=== PATIENT | male | born 1945 | race Caucasian/White ===

== ENCOUNTER 2017-08-05 07:23 | Day surgery (SDC) | payer MEDICARE ==
[2017-08-05] VITALS (9 sets, daily range): BP systolic 103–129; BP diastolic 53–81
[~2017-08-05] VITALS: Ht 182.9 cm; Wt 72.6 kg
[~2017-08-05 07:23] MED LIST: LIPITOR80 M1 PO; TAMSULOSIN HCL0.4 MG PO
--- NOTE | 2017-08-05 12:05 | NUR ---
PT TRANSFERRED TO ROOM 271 ACCOMPANIED BY OR STAFF AND SELF RE-POSITIONED INTO HOSPITAL BED;VS OBTAINED AND ASSESSMENT COMPLETED;PT ORIENTED TO ROOM AND CALL LIGHT SYSTEM AND VERBALIZES UNDERSTANDING;PT DENIES ANY PAIN OR DISCOMFORTS, EDUCATED ON PAIN LEVEL AND REPORTING;PT ALERT AND ORIENTED X4;EDUCATED PT ON CBI AND PT VERBALIZES UNDERSTANDING;RESPIRATIONS EVEN AND UNLABORED ON RA,CLEAR LUNG SOUNDS;ABDOMEN SOFT ON PALPATION AND HYPOACTIVE IN ALL 4 QUADRANTS;STRONG PEDAL PULSES;SCD'S PLACED ON PT;#20G TO LEFT HAND INFUSING LR @ 100ML/HR,SITE APPEARS HEALTHY;CATHETER TRACTION DEVICE IN PLACE AND TRACTION SET TO 10 PER OR;CDI RUNNING WITH EASE AND DRAINING RED/CLEAR FLUIDS,PT TOLERATING WELL;ICE CHIPS PROVIDED PER REQUEST;I.S. PLACED AT BEDSIDE AND PT INSTRUCTED ON USE X10 PER HOUR WHILE AWAKE,GOAL SET TO 1500;ALL SAFETY PRECAUTIONS REINFORCED WITH BED IN THE LOWEST POSITION;ENCOURAGED PT TO CALL FOR ASSISTANCE IF NEEDED;CALL LIGHT IN REACH;WILL CONTINUE TO MONITOR
--- NOTE | 2017-08-05 14:35 | NUR ---
PT RESTING IN SEMI FOWLERS POSITION WITH VISITOR AT BEDSIDE;DENIES ANY CURRENT PAIN JUST AN "URGE TO URINATE";CDI CURRENTLY RUNNING ON BAG #8 DRAINING BRIDGES RED/CLEAR URINE;PT TOLERATING ICE CHIPS WELL;IV SITE PATENT;WILL CONTINUE TO MONITOR
--- NOTE | 2017-08-05 16:00 | NUR ---
PT RESTING IN SEMI FOWLERS POSITION;PT CURRENTLY ON BAG #12 CBI;BRIDGES RED/CLEAR DRAINAGE BEING OBTAINED;CATHETER TRACTION DEVICE IN PLACE AND PT TOLERATING WELL;IV FLUIDS RUNNING ORDERED WITH EASE;PT DENIES ANY CURRENT PAIN OR DISCOMFORTS;RESPIRATIONS EVEN AND UNLABORED ON RA;PO FLUIDS ENCOURAGED;ENCOUARGED PT TO CALL FOR ASSISTANCE IF NEEDED;CALL LIGHT IN REACH;WILL CONTINUE TO MONITOR
--- NOTE | 2017-08-05 19:30 | NUR ---
PATIENT RESTING IN BED AWAKE ALERT AND ORIENTEDX3 WITH CBI IN PLACE. PATIENT WITH #24 CROATIAN 3-WAY CROWDER IN PLACE WITH 50CC BALLOON DRAINING PINK URINE. TRACTION DEVICE IN PLACE AND ON #8 SETTING. PATIENT WITH SMALL AMT OF BLOODY DRAINAGE NOTED AT PENIAL-CATH JUNCTION. SPOKE WITH DR. BEATTY AND RECIEVED ORDERS TO REMOVE TRACTION DEVICE AND IT WAS REMOVED WITHOUT ANY DIFFICULTY. URINE THEN BECAME BRIDGES AND CDI WAS INCREASED. PATIENT DENIES PAIN BUT DOES STATE THAT HE DOES HAVE SOME PRESSURE TO THE SUPRAPUBIC AREA. IV SITE TO LEFT HAND INTACT WITH IVF PATENT AND INFUSING AT 100CC/HR. SITE APPEARS HEALTHY AT THIS TIME. PATIENT TAKING PO FLUIDS AND TOLERATED WELL AT THIS TIME. SAFETY PRECAUTIONS REINFORCED. CALL LIGHT IN REACH. WILL CONT TO MONITOR.
--- NOTE | 2017-08-05 20:36 | NUR ---
PT.MEDICATED ORDERS PROVIDE AND W/BENTYL FOR WHAT FEELS LIKE POSSIBLE SPASMS TO THE PT. PROVIDED PENILE CARE AT CATH JUNCTION SITE/FOR BLEEDING. PT.ASSESSEMENT COMPLETED AT THIS TIME, LUNG SOUNDS ARE CLEAR, ABD DIST/FIRM AND TENDER IN L&R LOWER QUADRANTS, PT.REPORTS MILD SORE THROAT, SKIN IS INTACT PT.LOCX4. PT.DENIES ANY OTHER NEEDS AT THIS TIMME. POC WAS DISCUSSED W/PT AND PT.ENCOURAGED TO CALL IF ANY NEEDS ARISE.
--- NOTE | 2017-08-05 22:07 | NUR ---
PT.IS IN LOW FOWLERS POSITION W/LIGHTS OUT. CBI RUNNING DRAINING BRIDGES RED/NO CLOTS. DENIES ANY OTHER NEEDS AT THIS TIME.
--- NOTE | 2017-08-05 22:28 | NUR ---
PT.MEDICATED FOR PAIN 6/10 DULL ACHE IN PROSTATE AND TIP OF PENIS. PT.IS USING IS, CBI IS RUNNING OPEN W/BRIDGES RED OUTPUT W/GOOD URINE OUTPUT. PT.DENIES ANY OTHER NEEDS AT THIS TIME. CALL LIGHT IS W/IN REACH.
[2017-08-06 00:12] VITALS: BP 133/86
--- NOTE | 2017-08-06 00:36 | NUR ---
CBI CLOTTING, IRRIGATION NS PULLED BUT WE WERE ABLE TO DISLODGE CLOTS IN TUBING W/OUT ACTUAL IRRIGATION. CBI FLOWING/DRAINING LIGHT RED AT THIS TIME. CATH STRAP IS IN PLACE. PENILE DRESSING BLOOD SOAKED/DRESSING CHANGED AND REINFORCED. PT.TOLERATED PROCEDURES WELL. DENIES ANY OTHER NEEDS AT THIS TIME. SCD'S ARE ON AND PT.INSTRUCTED TO CALL IF BLEEDING CONTINUES OR IF ANY OTHER ISSUES ARISE. DENIES PAIN AT THIS TIME, JUST STATES HE HAS "PRESSURE."
--- NOTE | 2017-08-06 03:19 | NUR ---
PT.APPEARS TO BE SLEEPING AT THIS TIME. CBI DRAINING CLEAR LIGHT RED W/GOOD URINE OUTPUT, HAS BEEN SLIGHTLY TITRATED DOWN W/CLARITY IMPROVEMENT.
--- NOTE | 2017-08-06 04:09 | NUR ---
LAB IN TO SEE PT. CBI TITRATED DOWN, REMAINING DARK PINK/CLEAR AT THIS TIME. BAG 43 OF NS IRRIGATION IS RUNNING AT THIS TIME. GOOD URINE OUTPUT. PT.REPORTS THAT DISCOMFORT IS MUCH BETTER, HE ONLY "FEELS SLIGHT PRESSURE." CALL LIGHT IS W/IN REACH AND PT.INSTRUCTED TO CALL IF ANY NEEDS ARISE.
[2017-08-06 04:21] VITALS: BP 114/72
[2017-08-06 05:04] LABS: IMMATURE GRANULOCYTES 0.3 % (0.0-1.0); MEAN CELL VOLUME 92.7 fL CALC (80.0-100.0); MEAN CORPUSCULAR HGB 31.7 pG CALC (26.0-32.0); MEAN CORPUSCULAR HGB CONC 34.2 g/L CALC (32.0-36.0); NEUT# 5.8 thou/uL (1.82-7.42); RED BLOOD COUNT 4.13 mill/uL (4.70-6.10); RED CELL DISTRI WIDTH 12.7 % (11.5-15.5)
[2017-08-06 05:05] LABS: HEMATOCRIT 38.3 % (39.0-50.0); HEMOGLOBIN 13.1 g/dl (14.0-18.0)
[2017-08-06 05:14] LABS: ANION GAP 14 (6-22 (CALC)); BUN 15 mg/dL (8-23); BUN/CREATININE RATIO 18 (12-20 (CALC)); CARBON DIOXIDE 29 mmol/l (22-30); CHLORIDE 99 mmol/l (95-108); CREATININE 0.8 mg/dL (0.7-1.3); GFR > 60 ML/MIN (>=60 (CALC)); GFR FOR AFR.AMER. > 60 ML/MIN (>=60 (CALC)); MAGNESIUM 1.8 mg/dL (1.6-2.3); POTASSIUM 4.2 mmol/l (3.5-5.1); SODIUM 138 mmol/l (137-146)
--- NOTE | 2017-08-06 05:22 | NUR ---
PT.PENILE DRESSING IS CDI, CBI IS TITRATED SLOW W/LIGHT RED/DARK PINK DRAINAGE W/GOOD URINE OUTPUT. PT.DENIES ANY PAIN ONLY MILD PRESSURE AT THIS TIME. CALL LIGHT IS W/IN REACH AND PT.HAS BEEN ENCOURAGED TO CALL IF ANY NEEDS ARISE.
--- NOTE | 2017-08-06 07:00 | NUR ---
RECEIVED BEDSIDE REPORT FROM KIRBY MONTOYA. RESTTING IN SUPINE POSITION, RESPS EVEN AND UNLABORED ON ROOM AIR. DR BEATTY AT BEDSIDE, NEW ORDERS RECEIVED. CBI CLAMPED AT THIS TIME, CATH BAG WITH SM AMT CRANBERRY COLORED DRAINAGE. PT DENIES PAIN OR DISCOMFORT. PLAN OF CARE DISCUSSED. SAFETY PRECAUTIONS REINFORCED. BED IN LOWEST POSITION WITH WHEELS LOCKED. CALL LIGHT WITHIN REACH. ENCOURAGED PT TO CALL FOR ANY NEEDS.
[2017-08-06 08:19] VITALS: BP 120/86
--- NOTE | 2017-08-06 10:17 | NUR ---
AMBULATING IN HALLWAY WITH STEADY GAIT ACCOMPANIED BY RENAE SANDERS.
--- NOTE | 2017-08-06 11:49 | NUR ---
Discharged to: HOME Discharged via: Wheelchair Accompanied by: significant other D/C Condition: stable Diet: as tolerated Diet modification: Activity: No strenuous activity Home Health: [facility] Follow up appointment: 2 [address] [facility] Special instructions: HOME HEALTH TO REMOVE [place] 08/08/17 DR BEATTY [phone] FOR ANY QUESTIONS/PROBLEMS Medications: SEE MEDICATION RECONCILIATION FORM Prescriptions Given: KEFLEX, AZO, VESICARE, TRAMADOL Please notify your physician if you received either one of these vaccinations: Influenza Vaccine - Date: Pneumococcal Vaccine - Date: Patient Education Materials Provided: Yes - Food and Drug Interaction Guide Yes - Anticoagulation Education Booklet Contains the following information: 1. Compliance issues 2. Dietary advice 3. Follow up monitoring 4. Potential for adverse drug reactions and interactions Yes - Smoking Cessation Booklet IF SYMPTOMS WORSEN, OR IF YOU HAVE ADDITIONAL QUESTIONS, PLEASE CONTACT YOUR PERSONAL PHYSICIAN OR SEEK EMERGENCY CARE. CALL YOUR PHYSICIAN IF YOU DO NOT GET RELIEF FROM THE PAIN MEDICATIONS PRESCRIBED, OR IF THE INTENSITY OF PAIN INCREASES, OR IF PAIN IS INTERFERING WITH ACTIVITY OR REST. IF YOU SMOKE, YOU NEED TO QUIT. IT IS GOOD FOR YOU AND EVERYONE AROUND YOU! Your physician and [facility] care about you and your health. The facts are clear. Smoking causes 1 out of 5 deaths in the [place] each year. It is the major preventable cause of emphysema, lung cancer, chronic bronchitis, heart disease and stroke. Quitting is one of the best things you can ever do for yourself and those you love. What better time to quit than now! You've already been cigarette free during your stay. Studies have shown that the first 48 hours of quitting are the toughest. Just a few of the benefits your body begins to experience are blood pressure returns to normal, the carbon monoxide level in your blood drops to normal, your chance of heart attack decreases, and your ability to smell and taste is enhanced. Here are some resources that you may find helpful: [employer] www.lungusa.org www.cancer.org [employer] [place] Department of Health (Tobacco Prevention and Control Program) www.americanheart.org www.jocelin.[facility].fl.us Finally don't forget that your doctor may be able to help you. Whichever method you choose will be good for you. IF YOU HAVE A DIAGNOSIS OF CONGESTIVE HEART FAILURE, THERE ARE SEVERAL ADDITIONAL INSTRUCTIONS FOR YOU TO FOLLOW UPON DISCHARGE FROM THE HOSPITAL. Weigh yourself every day and if weight gain is greater than 2 pounds in a day, call your physican. If you experience worsening symptoms such as: Problems with breathing or shortness of breath Ankle/foot/leg swelling Unexplained weight gain greater than 2 pounds Call your physician or come to the emergency room. IF YOU HAVE A DIAGNOSIS OF STROKE, THERE ARE SEVERAL ADDITIONAL INSTRUCTIONS FOR YOU TO FOLLOW: A stroke occurs when something happens to interrupt the steady flow of blood to the brain, like a clot or a burst in a blood vessel. Brain cells quickly begin to . These INCREASE your chance of having a STROKE: * Smoking * High blood pressure * Diabetes * Obesity WARNING SIGNS OR SYMPTOMS: * Sudden weakness on one side of body. * Sudden confusion, trouble speaking or understanding. * Sudden trouble seeing. * Sudden trouble walking or loss of balance. * Sudden severe headache with no known cause. CALL At Any Sign of Stroke. You can beat a stroke. Disabilities can be prevented or limited, but you have must go to the Emergency Department immediately. Go in an Ambulance. Save Time. Be Seen Faster! If you were admitted to the hospital for a stroke After DISCHARGE you must: * Keep ALL follow up appointments. * Take your medications as ordered by your doctor. * Do not take any other drugs without checking with your doctor first. * Do not drive unless your doctor says it is okay. * Call your doctor with any questions or concerns. IF YOU WERE DISCHARGED ON COUMADIN/WARFARIN ANTICOAGULATION THERAPY, THERE ARE SEVERAL ADDITIONAL INSTRUCTIONS FOR YOU TO FOLLOW: Anticoagulants are medications that help prevent blood clots. They are often prescribed for people with certain heart, lung and blood vessel diseases to help prevent heart attacks and strokes. IMPORTANT Anticoagulation medications have been used for many years, but it can be difficult to manage. That's because many factors can affect how they work-including small changes in dose or dose timing, what you eat or drink, other medications and stress. You and your doctor must work closely together to manage this important medication. * Take your medicine EXACTLY as instructed by your doctor. * You must have your blood drawn for PT/INR to monitor your medication. * Do not take any new medications, vitamins or herbal supplements without asking your doctor first. FOODS: * Eat the same amount of foods that contain Vitamin K every day. * Avoid or limit alcohol. * Avoid major changes in diet or notify your doctor first. FOLLOW UP MONITORING: See your physician within one week to monitor your condition. You will need to have blood tests performed to monitor the medication. DRUG INTERACTIONS: * Diet and medications can affect the PT/INR level. * Do not take or discontinue any medication or over the counter medication unless your doctor okays. * Warfarin/Coumadin increases the risk of bleeding. CALL YOUR PHYSICIAN IF: If you notice any signs of increased bleedin. Excessive bruising. 2. Abnormal bleeding from nose or gums. 3. Rodriguez Hevia, red or dark brown urine. 4. Minor bleeding or bright red blood from the bowel. CALL 911 OR GO TO THE HOSPITAL IF: 1. You have black tarry stools. 2. Sudden dizziness, faintness or weakness. 3. Cold or numbness in arm or leg. 4. Sudden chest pain. 5. Trouble talking or moving one side of body. 6. Coughing or vomiting bright red blood. 7. Severe headache or stomach pain. 8. Serious fall or hit to the head. Visit our website at [email or web address] You are going home today. Depending on your insurance coverage, you may be receiving a bill from the hospital for your hospital stay. If you have any question about your bill, please call the Business Office at [phone] or contact us at our web address: [email or web address]. If applicable, I have received my medication information as recommeded by my provider upon discharge. I have read and understand the above discharge instructions. Pt Signature: Date: Time: Witnessed by: Date: Time: Complete the record of communication to the next provider below. These discharge instructions, including discharge medications, is to be faxed to the next provider at the time of the patient's discharge. ____These instructions faxed to next Provider (Provider Name) on (Date) @ (Time) . ____The second provider involved in patient care following discharge has been faxed this information. These instructions faxed to (Provider-Home Health, Physical Therapy, Agency) on (Date) @ (Time) . OR ____Patient unable/unwilling to verbalize who the next provider of care will be, instructed patient to take these instructions to next appointment with healthcare provider.
--- NOTE | 2017-08-06 12:00 | NUR ---
IV site discontinued, cath intact. No edema , no redness, voices no discomfort.
--- NOTE | 2017-08-06 14:20 | NUR ---
Discharge instructions given. Patient verbalizes understanding of same. Discharged in stable condition via Wheelchair to Home with significant other. All belongings sent with pt.
== END 2017-08-06 14:20 | disposition home health service (06) ==
LOC: ORM 07:23 → MS2 12:05 → ORM 08-06 14:20
PROVIDERS: ATTEND Urology
PROC: 0VT08ZZ Resection of Prostate, Via Natural or Artificial Opening Endoscopic (ICD-10-PCS; principal; 2017-08-05)
DX: N40.1 Benign prostatic hyperplasia with lower urinary tract symptoms (principal); R39.12 Poor urinary stream; R35.1 Nocturia; R35.0 Frequency of micturition; R97.20 Elevated prostate specific antigen [PSA]; N53.14 Retrograde ejaculation; N52.9 Male erectile dysfunction, unspecified; T44.6X5A Adverse effect of alpha-adrenoreceptor antagonists, initial encounter; E78.5 Hyperlipidemia, unspecified; Z87.891 Personal history of nicotine dependence
CPT/HCPCS: J2710